=== PATIENT | male | born 1955 | race Hispanic/Latino ===

== ENCOUNTER 2018-05-05 16:16 | Emergency (ER) | payer MEDICARE, OTHER ==
[~2018-05-05 16:16] MED LIST: ISOVUE-370 76%-LOCM 1 ML ONE
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
[2018-05-05] MEDS ORDERED: Adacel (T-DAP) 0.5 ML VIAL ONE (18:16)
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
== END 2018-05-05 18:30 | disposition home or self-care (01) ==
LOC: ERS 16:16
DX: S81.011A Laceration without foreign body, right knee, initial encounter (principal); T22.011A Burn of unspecified degree of right forearm, initial encounter; T14.8XXA Other injury of unspecified body region, initial encounter; Z87.891 Personal history of nicotine dependence; V59.60XA Unspecified occupant of pick-up truck or van injured in collision with unspecified motor vehicles in traffic accident, initial encounter
CPT/HCPCS: 12002; 71260; 72125; 74177; 90471; 90715

== ENCOUNTER 2018-05-16 18:51 | Emergency (ER) | payer MEDICARE, OTHER ==
[2018-05-16] MEDS ORDERED: Bacitracin Zinc 1 Packet ONE (19:00)
== END 2018-05-16 19:22 | disposition home or self-care (01) ==
LOC: ERS 18:51
DX: S81.011D Laceration without foreign body, right knee, subsequent encounter (principal); Z87.891 Personal history of nicotine dependence; Z79.899 Other long term (current) drug therapy

== ENCOUNTER 2018-05-19 13:57 | Emergency (ER) | payer MEDICARE ==
[2018-05-19] MEDS ORDERED: Bacitracin Zinc 1 Packet ONE (15:08)
== END 2018-05-19 15:10 | disposition home or self-care (01) ==
LOC: ERS 13:57
DX: S81.011D Laceration without foreign body, right knee, subsequent encounter (principal); Z87.891 Personal history of nicotine dependence

== ENCOUNTER 2022-12-12 00:53 | Emergency (ER) | payer OTHER, SELFPAY | END 2022-12-12 01:34 | disposition home or self-care (01) | LOC: ERS 00:53 | DX: Z02.89 Encounter for other administrative examinations (principal) | CPT/HCPCS: 99281 ==

== ENCOUNTER 2023-02-18 19:37 | Emergency (ER) | payer MEDICARE | END 2023-02-18 21:07 | disposition left against medical advice (07) | LOC: ERS 19:37 | DX: Z53.29 Procedure and treatment not carried out because of patient's decision for other reasons (principal) ==